=== PATIENT | female | born 1935 | race African-American/Black ===

== ENCOUNTER 2017-09-25 08:18 | Emergency (ER) | payer MEDICARE ==
[~2017-09-25] VITALS: Ht 154.9 cm; Wt 100.0 kg
[~2017-09-25 08:18] MED LIST: ACET-2178 PO; ACET1TAB14 PO; ASPI-1159 PO; DORZ10DR8 EACHEYE; HYDR-4135 PO; TIMO15DR12 EACHEYE
[2017-09-25 09:22] LABS: EOSINOPHILS % 9.1 % (0.0-5.0); HEMATOCRIT. 40.1 % (36.0-48.0); HEMOGLOBIN. 13.1 g/dL (12.0-16.0); LYMPHOCYTES % 27.8 % (20.0-50.0); MEAN CORPUSCULAR HEMOGLOBIN 29.2 pg (28.0-32.0); MEAN CORPUSCULAR VOLUME 89.7 fL (81.0-99.0); MEAN PLATELET VOLUME 7.6 fl (7.4-10.4); MONOCYTES % 9.6 % (2.0-8.0); NEUTROPHILS % 52.5 % (40.0-76.0); PLATELET 313 x1000/uL (130-400); RED BLOOD CELL COUNT 4.47 mill/uL (4.2-5.4); RED CELL DISTRIBUTION WIDTH 14.8 % (11.6-14.6)
[2017-09-25 09:29] LABS: CHLORIDE 102 mEq/L (98-107)
[2017-09-25 09:30] LABS: INR 1.1; PROTHROMBIN TIME 11.5 sec (9.4-11.6)
[2017-09-25 15:59] VITALS: BP 123/59
== END 2017-09-25 16:06 | disposition home or self-care (01) ==
LOC: ER 08:28
DX: R94.31 Abnormal electrocardiogram [ECG] [EKG] (principal); J44.9 Chronic obstructive pulmonary disease, unspecified; I25.10 Atherosclerotic heart disease of native coronary artery without angina pectoris; I48.91 Unspecified atrial fibrillation; I10 Essential (primary) hypertension; E11.9 Type 2 diabetes mellitus without complications; H40.9 Unspecified glaucoma; Z85.9 Personal history of malignant neoplasm, unspecified; Z95.0 Presence of cardiac pacemaker; Z79.82 Long term (current) use of aspirin; Z98.84 Bariatric surgery status
CPT/HCPCS: 36415; 71045; 80053; 83880; 84484; 85025; 85610; 93005; 99285